=== PATIENT | male | born 1970 | race African-American/Black ===

== ENCOUNTER 2024-09-18 06:19 | Inpatient (IN) | payer MEDICAID ==
[~2024-09-18] VITALS: Ht 172.7 cm; Wt 88.7 kg
[2024-09-18 07:16] LABS: CHLORIDE 106 mEq/L (98-107); POTASSIUM 3.6 mEq/L (3.5-5.1); SODIUM 142 mEq/L (136-145)
[2024-09-18 07:17] LABS: CALCIUM 9.3 mg/dL (8.7-10.4); CARBON DIOXIDE 24 mEq/L (21-32)
[2024-09-18 07:22] LABS: CREATININE 1.1 mg/dL (0.6-1.3); GLUCOSE 95 mg/dL (70-105); UREA NITROGEN BLOOD 16 mg/dL (9-23)
[2024-09-18 07:26] LABS: HEMATOCRIT. 39.2 % (42.0-52.0); HEMOGLOBIN. 13.1 g/dL (14.0-18.0); MEAN CORPUSCULAR HEMOGLOBIN 31.7 pg (28.0-32.0); MEAN CORPUSCULAR HGB CONC 33.3 g/dL (31.0-37.0); MEAN CORPUSCULAR VOLUME 95.3 fL (80.0-94.0); MEAN PLATELET VOLUME 9.7 fl (7.4-10.4); PLATELET 241 x1000/uL (130-400); RED BLOOD CELL COUNT 4.12 mill/uL (4.7-6.1); RED CELL DISTRIBUTION WIDTH 15.7 % (11.6-14.6); WHITE BLOOD COUNT 16.2 x1000/uL (4.5-11.0)
[2024-09-18 07:29] VITALS: O2SAT 98
[2024-09-18 07:46] LABS: DIFFERENTIAL COMMENT 1
[2024-09-18 08:44] LABS: ANISOCYTOSIS 1+; PLATELET ESTIMATE NORMAL
[2024-09-18] MEDS ORDERED: ALBUTEROL (0.083%) 2.5MG/3ML NEB HHN STA (09:28)
[2024-09-18] MEDS ORDERED: IPRATROPIUM BROMIDE (0.02%) 0.5MG/2.5ML NEB HHN STA (09:28)
[2024-09-18] MEDS ORDERED: ONDANSETRON HCL 4MG/2ML INJ IV PRN (12:15)
[2024-09-18] MEDS ORDERED: DOCUSATE SODIUM 100MG CAPSULE PO PRN (12:15)
[2024-09-18] MEDS ORDERED: IPRATROPIUM/ALBUTEROL 0.5-3(2.5)MG/3ML NEB HHN PRN (12:15)
[2024-09-18] MEDS ORDERED: CLONIDINE 0.1MG TABLET PO PRN (12:15)
[2024-09-18] MEDS ORDERED: MAGNESIUM/ALUMINUM HYDROXIDE/SIMETHICONE 30ML UDC PO PRN (12:15)
[2024-09-18] MEDS ORDERED: ACETAMINOPHEN 325MG TABLET PO PRN ×2 (12:15)
[2024-09-18] MEDS: CEFTRIAXONE 1GM/50ML 50 ML IV SCH (13:10)
[2024-09-18 14:34] LABS: LDL CHOLESTEROL 82 mg/dL (5-100); TRIGLYCERIDE 42 mg/dL (0-150)
[2024-09-18 14:36] LABS: CHOLESTEROL 145 mg/dL (<200); HDL CHOLESTEROL 51 mg/dL (>55)
[2024-09-18 14:38] LABS: IRON 85 ug/dL (65-175)
[2024-09-18 14:43] LABS: TOTAL IRON BINDING CAPACITY 250 ug/dl (250-425)
[2024-09-18 14:47] LABS: FERRITIN 38 ng/mL (22-322); FOLIC ACID (FOLATE) SERUM 17.64 ng/mL (>5.38)
[2024-09-18 14:48] LABS: VITAMIN B12 SERUM 504 pg/mL (211-911)
[2024-09-18 15:00] VITALS: BP 118/75; PULSE 66; RESP 20; TEMP 36.6
[2024-09-18 16:00] VITALS: BP 118/75; PULSE 66; RESP 20; TEMP 36.6; O2SAT 100
[2024-09-18] MEDS: AZITHROMYCIN 500MG/250ML 250 ML IV SCH (16:27)
[2024-09-18] MEDS: GUAIFENESIN 200MG/10ML SUGAR FREE UDC PO PRN (16:28)
[2024-09-18] MEDS: PREDNISONE 10MG TABLET PO NR (16:28)
[2024-09-18 18:01] LABS: HEPATITIS B SURFACE ANTIGEN NEGATIVE (Negative)
[2024-09-18 18:22] LABS: HEPATITIS C AB NON REACTIVE (Neg) (Negative)
[2024-09-18 20:00] VITALS: BP 106/74; PULSE 78; RESP 19; TEMP 36.8; O2SAT 100
[2024-09-18] MEDS ORDERED: ARFORMOTEROL TARTRATE 15MCG/2ML NEB NEB SCH (21:00)
[2024-09-18 21:05] VITALS: PULSE 86; RESP 18; O2SAT 97
[2024-09-18] MEDS: ALBUTEROL (0.083%) 2.5MG/3ML NEB HHN SCH (21:05)
[2024-09-18] MEDS: BUDESONIDE 0.5MG/2ML NEB HHN SCH (21:05)
[2024-09-19] VITALS (10 sets, daily range): BP systolic 108–132; BP diastolic 67–78; PULSE 69–102; RESP 16–22; TEMP 36–37.4; O2SAT 92–100
[2024-09-19 06:14] LABS: BASOPHILS % 0.5 % (0.0-2.0); DIFFERENTIAL COMMENT 0; EOSINOPHILS % 1.1 % (0.0-5.0); HEMATOCRIT. 37.6 % (42.0-52.0); HEMOGLOBIN. 12.5 g/dL (14.0-18.0); LYMPHOCYTES % 9.7 % (20.0-50.0); MEAN CORPUSCULAR HEMOGLOBIN 31.7 pg (28.0-32.0); MEAN CORPUSCULAR HGB CONC 33.4 g/dL (31.0-37.0); MEAN CORPUSCULAR VOLUME 95.1 fL (80.0-94.0); MEAN PLATELET VOLUME 10.2 fl (7.4-10.4); NEUTROPHILS % 79.7 % (40.0-76.0); PLATELET 227 x1000/uL (130-400); RED BLOOD CELL COUNT 3.95 mill/uL (4.7-6.1); RED CELL DISTRIBUTION WIDTH 15.8 % (11.6-14.6); WHITE BLOOD COUNT 11.6 x1000/uL (4.5-11.0)
[2024-09-19 06:23] LABS: CHLORIDE 106 mEq/L (98-107); POTASSIUM 3.7 mEq/L (3.5-5.1); SODIUM 140 mEq/L (136-145)
[2024-09-19 06:24] LABS: CARBON DIOXIDE 26 mEq/L (21-32)
[2024-09-19 06:25] LABS: CALCIUM 8.9 mg/dL (8.7-10.4)
[2024-09-19 06:29] LABS: CREATININE 0.9 mg/dL (0.6-1.3); GLUCOSE 157 mg/dL (70-105)
[2024-09-19 06:30] LABS: UREA NITROGEN BLOOD 13 mg/dL (9-23)
[2024-09-19] MEDS: LOSARTAN 50 MG TABLET PO SCH (09:00)
[2024-09-19] MEDS: ENOXAPARIN 30MG/0.3ML SYR SUBCUT SCH (09:00)
[2024-09-19] MEDS ORDERED: AZIT500T8 MT (09:51)
[2024-09-19] MEDS ORDERED: AMOX-405 MT (09:51)
[2024-09-19] MEDS ORDERED: ALBU18HF2 IH (09:51)
[2024-09-19] MEDS ORDERED: P20 MT (09:53)
[2024-09-19] MEDS ORDERED: GUAI237L83 MT (09:55)
[2024-09-19] MEDS: PANTOPRAZOLE SODIUM 40 MG/VIAL IV SCH (10:32)
[2024-09-19] MEDS: PREDNISONE 10MG TABLET PO SCH (10:33)
[2024-09-19] MEDS ORDERED: AMOX1TAB16 MT (12:23)
[2024-09-20] VITALS: BP 129/62; PULSE 79; RESP 22; TEMP 36.1; O2SAT 100
[2024-09-20 02:37] VITALS: PULSE 90; RESP 22; O2SAT 96
[2024-09-20] MEDS ORDERED: CEFTRIAXONE 1GM/50ML 50 ML IV SCH (12:00)
[2024-09-20] MEDS ORDERED: AZITHROMYCIN 500MG/250ML 250 ML IV SCH (13:00)
== END 2024-09-20 03:13 | disposition home or self-care (01) | DRG 720 ==
LOC: ER 06:19 → 6WST 11:21
PROVIDERS: ADMIT Internal Medicine; ATTEND Internal Medicine
DX: A41.9 Sepsis, unspecified organism (principal); J96.00 Acute respiratory failure, unspecified whether with hypoxia or hypercapnia; J18.9 Pneumonia, unspecified organism; D53.9 Nutritional anemia, unspecified; I10 Essential (primary) hypertension; E78.5 Hyperlipidemia, unspecified; D72.810 Lymphocytopenia; E63.9 Nutritional deficiency, unspecified; Z93.0 Tracheostomy status; Z88.1 Allergy status to other antibiotic agents; Z87.891 Personal history of nicotine dependence
CPT/HCPCS: 31720; 36415; 71045; 80048; 80061; 82607; 82728; 82746; 83540; 83550; 83605; 83880; 84145; 85025; 86705; 87340; 93005; 94070; 94640; 94760; 99285; J0456; J0696; J1650; J2470; J7512; J7626